=== PATIENT | female | born 1975 | race Caucasian/White ===

== ENCOUNTER 2024-12-13 21:25 | Emergency (ER) | payer BC ==
[2024-12-13 21:40] LABS: BASOPHILS ABSOLUTE AUTO 0.05 10^3/uL (0.00-0.50); BASOPHILS PERCENT AUTO 0.5 % (0-1); EOSINOPHILS ABSOLUTE AUTO 0.21 10^3/uL (0.00-1.50); EOSINOPHILS PERCENT AUTO 2.2 % (0-6); HEMATOCRIT 41.7 % (37.0-47.0); HEMOGLOBIN 13.9 g/dL (12.0-16.0); IMMATURE GRAN ABSOLUTE AUTO 0.01 10^3/uL (0.00-0.49); IMMATURE GRAN PERCENT AUTO 0.1 % (0.0-4.9); LYMPHOCYTES ABSOLUTE AUTO 4.08 10^3/uL (0.60-5.00); LYMPHOCYTES PERCENT AUTO 42.1 % (24-44); MEAN CORPUSCULAR HEMOGLOBIN 29.8 pg (27.0-32.0); MEAN CORPUSCULAR HGB CONC 33.3 g/dL (32.0-36.0); MEAN CORPUSCULAR VOLUME 89.3 fL (83.0-97.0); MONOCYTES ABSOLUTE AUTO 0.83 10^3/uL (0.00-1.50); MONOCYTES PERCENT AUTO 8.6 % (0-10); NEUTROPHILS ABSOLUTE AUTO 4.52 x10^3/uL (1.80-8.00); NEUTROPHILS PERCENT AUTO 46.5 % (41-71); PLATELET COUNT,PLT 383 10^3/uL (150-400); RED BLOOD CELL COUNT 4.67 x10^6/uL (4.00-5.50); WHITE BLOOD CELL COUNT,WBC 9.7 10^3/uL (4.0-11.0)
[2024-12-13 21:51] LABS: D-DIMER QUANTITATIVE 0.45 (0.00-0.50); PTT,PARTIAL THROMBOPLSTIN TIME 22.6 SEC (20.0-30.0)
[2024-12-13 21:54] LABS: ALANINE AMINOTRANSFERASE,ALT 27 U/L (12-78); ALBUMIN 3.7 g/dL (3.4-5.0); ALKALINE PHOSPHATASE 90 U/L (46-116); ASPARTATE AMNIOTRANSFERASE,AST 15 U/L (15-37); BILIRUBIN TOTAL 0.4 mg/dL (0.0-1.0); BLOOD UREA NITROGEN,BUN 14 mg/dL (7-18); CALCIUM 9.4 mg/dL (8.4-10.1); CARBON DIOXIDE,CO2 32 mmol/L (21-32); CHLORIDE,CL 103 mEq/L (98-106); EST CRCL DRUG DOSING (CG) 59.89 mL/min; ESTIMATED GFR 68 mL/min (>=60); GLUCOSE RANDOM 134 mg/dL (75-99); LIPASE 65 U/L (16-77); MAGNESIUM 1.8 mg/dL (1.8-2.4); POTASSIUM,K 3.4 mEq/L (3.5-5.0); PROTEIN TOTAL,TP 6.9 g/dL (6.4-8.2); SODIUM,NA 145 mEq/L (136-145)
[2024-12-13 21:55] LABS: C-REACTIVE PROTEIN < 0.50 mg/dL (<=0.50)
== END 2024-12-14 00:46 | disposition home or self-care (01) ==
LOC: CC.ED 21:25
DX: R07.89 Other chest pain (principal); E78.00 Pure hypercholesterolemia, unspecified; Z88.5 Allergy status to narcotic agent; Z88.8 Allergy status to other drugs, medicaments and biological substances; Z91.048 Other nonmedicinal substance allergy status; Z79.82 Long term (current) use of aspirin; Z79.899 Other long term (current) drug therapy
CPT/HCPCS: 36415; 71046; 80053; 83690; 83735; 84484; 85025; 85379; 85730; 86140; 87428-QW; 93005; 99285